=== PATIENT | female | born 1980 | race Caucasian/White ===

== ENCOUNTER 2022-09-26 19:45 | Emergency (ER) | payer OTHER ==
--- OUTSIDE RECORDS SUMMARY | 2022-09-26 19:48 | XMS REPORT | Continuity of Care Document ---
:1980 Author Organization [facility] t Address [address] [place] [address] [place] [id number] Care Team Providers Name Role Phone A_Byrd Attending Clinician Unavailable Yan_W Attending Clinician Unavailable A_Byrd Admitting Clinician Unavailable Yan_W Admitting Clinician Unavailable Payers Payer Name Policy Type Policy Number Effective Date Expiration Date [facility] [id number] 2021 [facility] 00:00:00 [facility] [place] [facility] - [id number] [facility] Problems Condition Condition Condition Status Onset Resolution Last Treating Co mments Source Name Details Category Date Date Treatment Clinician Date Atypical Atypical Problem Active 2020-07 [facility] chest pain Chest Pain 2-16 da 00:00: Medical 00 Group Lateral Lateral Problem Active 2020-07 [facility] epicondyli Epicondyli 1-30 da tis of tis of 00:00: Medical right Right 00 Group humerus Humerus Anxiety Anxiety Problem Active 2020-07 [facility] 0-20 da 00:00: Medical 00 Group Depressive Depressive Problem Active 2020-07 [facility] disorder Disorder 0-20 da 00:00: Medical 00 Group Allergies, Adverse Reactions, Alerts This patient has no known allergies or adverse reactions. Medications Ordered Filled Start Stop Current Ordering Indication Dosage Frequency Signature Comments Components Source Medication Medication Date Date Medication? Clinician (SIG) Name Name acetaminoph acetaminoph No acetaminop [facility] en 300 en 300 hen 300 da mg-codeine mg-codeine mg-codeine Medical 30 mg 30 mg 30 mg Group tablet tablet tablet clonazepam clonazepam No clonazepam [facility] 2 mg tablet 2 mg tablet 2 mg d a TAKE 1 TAKE 1 tablet Medical TABLET (2 TABLET (2 TAKE 1 Willi up MG) BY MG) BY TABLET (2 MOUTH 3 MOUTH 3 MG) BY TIMES PER TIMES PER MOUTH 3 DAY DAY TIMES PER DAY ketorolac ketorolac No ketorolac [facility] 10 mg 10 mg 10 mg da tablet TAKE tablet TAKE tablet Medical ONE (1) ONE (1) TAKE ONE Group TABLET(S) TABLET(S) (1) BY MOUTH BY MOUTH TABLET(S) FOUR TIMES FOUR TIMES BY MOUTH A DAY FOR 5 A DAY FOR 5 FOUR TIMES DAYS DAYS A DAY FOR NEEDED FOR NEEDED FOR 5 DAYS PAIN. PAIN. NEEDED FOR PAIN. metoclopram metoclopram No metoclopra [facility] adrianne 10 mg adrianne 10 mg mide 10 mg da tablet tablet tablet Medical Group venlafaxine venlafaxine No venlafaxin [facility] ER 75 mg ER 75 mg e ER 75 mg d a capsule,ext capsule,ext capsule,ex Medical ended ended tended Group release 24 release 24 release 24 hr TAKE 2 hr TAKE 2 hr TAKE 2 CAPSULES CAPSULES CAPSULES (150 MG) BY (150 MG) BY (150 MG) MOUTH DAILY MOUTH DAILY BY MOUTH WITH FOOD WITH FOOD DAILY WITH FOOD zolpidem 10 zolpidem 10 No zolpidem [facility] mg tablet mg tablet 10 mg da TAKE ONE TAKE ONE tablet Medic al (1) (1) TAKE ONE Group TABLET(S) TABLET(S) (1) BY MOUTH BY MOUTH TABLET(S) ONCE A DAY ONCE A DAY BY MOUTH AT BEDTIME. AT BEDTIME. ONCE A DAY AT BEDTIME. Vital Signs Vital Name Observation Time Observation Value Comments Source BP Diastolic 2021-07-04 00:00:00 67 [facility] Height 2021-07-04 00:00:00 60 [facility]in_i[facility] BMI (Body Mass 2021-07-04 00:00:00 27 kg/m2 [facility]) Group BP Systolic 2021-07-04 00:00:00 98 mm[Hg] [facility] Body Weight 2021-07-04 00:00:00 2208 [oz_av] [facility] BP Diastolic 2021-06-25 00:00:00 67 mm[Hg] [facility] Height 2021-06-25 00:00:00 60 [in_i] [facility] BMI (Body Mass 2021-06-25 00:00:00 27 kg/m2 [facility]) Group BP Systolic 2021-06-25 00:00:00 97 mm[Hg] [facility] Body Weight 2021-06-25 00:00:00 2208 [oz_av] [facility] Procedures Procedure Date / Time Performed Performing Clinician Sourgaudencio e XR, elbow 2021-07-04 00:00:00 [facility] Caesarean Section [facility] Cholecyst[facility] Encounters Start End Encounter Admission Attending Care Care Encounter Source Date/Time Date/Time Type Type Clinicians Facility Department ID 2021-07-04 2021-07-04 Camilo Aragon A_Byrd [facility] [place] - [id number] [facility] 00:00:00 00:00:00 MD Maik: [address] [place] [address] , Ph. 2021-07-02 2021-07-02 [facility] [id number] [facility] 04:54:00 04:54:00 1207 [facility] 2021-06-25 2021-06-25 Camilo [place]agon [place] - [id number] [facility] 00:00:00 00:00:00 MD Maik: [address] [place] [address] [place] [address] , Ph. 2021-06-24 2021-06-24 Outpatient A_Byrd [facility] [id number] [facility] 11:19:00 11:19:00 1129 [facility] 2021-05-15 2021-05-15 Outpatient A_Byrd [facility] [id number] [facility] 11:18:00 11:18:00 1020 [facility] 2021-05-14 2021-05-14 [place] [id number] [facility] 04:01:00 04:01:00 1019 [facility] Results This patient has no known results.
[2022-09-26 21:48] LABS: SARS-COV-2 RT PCR NEGATIVE (NEGATIVE)
--- NOTE | 2022-09-26 22:00 | ER ---
Nurse's Notes [facility] Name: Yue Guillaume Age: 41 yrs Sex: Female : 1980 Arrival Date: 09/26/2022 Time: 19:49 Bed 15 Private MD: Diagnosis: SARS-associated coronavirus as the cause of diseases classified elsewhere Presentation: 09/26 20:33 Chief complaint: Patient states: started feeling bad yesterday, took a home covid test lg3 and it was positive. face pressure, body aches, runny nose, cough, congestion. Coronavirus screen: At this time, unable to obtain information related to travel outside the [place] Client presents with at least one sign or symptom that may indicate coronavirus-19. Standard/surgical mask placed on the client. Ebola Screen: No symptoms or risks identified at this time. Initial Sepsis Screen: Does the patient meet any 2 criteria? No. Patient's initial sepsis screen is negative. Does the patient have a suspected source of infection? No. Patient's initial sepsis screen is negative. Risk Assessment: Do you want to hurt yourself or someone else? Patient reports no desire to harm self or others. Onset of symptoms was September 25, 2021. 20:33 Method Of Arrival: Ambulatory lg3 20:33 Acuity: CAMILA 4 lg3 Triage Assessment: 20:36 Headache History: Denies prior headaches. General: Appears in no apparent distress. lg3 uncomfortable, Behavior is calm, cooperative. Pain: Complains of pain in generalized body aches Pain currently is 2 out of 10 on a pain scale. Pain began 1 day ago. Also complains of decreased appetite, nausea. EENT: No deficits noted. No signs and/or symptoms were reported regarding the EENT system. Neuro: No deficits noted. [place] Agitation-Sedation Scale (RASS): 0 - Alert and Calm Level of Consciousness is awake, alert, obeys commands, Oriented to person, place, time, situation. Cardiovascular: No deficits noted. Denies chest pain, Capillary refill < 3 seconds Clubbing of nail beds is absent JVD is absent Patient's skin is warm and dry. Respiratory: Reports cough that is Airway is patent Trachea midline Respiratory effort is even, unlabored, Respiratory pattern is regular, symmetrical. GI: No deficits noted. Reports diarrhea, nausea. : No deficits noted. No signs and/or symptoms were reported regarding the genitourinary system. Derm: No deficits noted. No signs and/or symptoms reported regarding the dermatologic system. Skin is intact, is healthy with good turgor, Skin is dry, Skin is normal, Skin temperature is warm. Musculoskeletal: No deficits noted. Circulation, motion, and sensation intact. Range of motion: intact in all extremities. 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 Flu vaccine is not up to date. - Social history:: Smoking status: Patient denies any tobacco usage or history of. Patient uses alcohol, occasionally. Patient/guardian denies using street drugs. Screenin:00 [facility] ED Fall Risk Assessment (Adult) History of falling in the last 3 months, ha1 including since admission No falls in past 3 months (0 pts) Confusion or Disorientation No (0 pts) Intoxicated or Sedated No (0 pts) Impaired Gait No (0 pts) Mobility Assist Device Used No (0 pt) Altered Elimination No (0 pt) Score/Fall Risk Level 0 - 2 = Low Risk Oriented to surroundings, Maintained a safe environment, Educated pt \T\ family on fall prevention, incl call for assistance when getting out of bed. Abuse screen: Denies threats or abuse. Denies injuries from another. Nutritional screening: No deficits noted. Tuberculosis screening: No symptoms or risk factors identified. Assessment: 20:42 General: Appears comfortable, Behavior is calm, cooperative. Pain: Complains of pain in ha1 head Pain does not radiate. Pain currently is 8 out of 10 on a pain scale. Quality of pain is described as throbbing. Neuro: Level of Consciousness is awake, alert, obeys commands, Oriented to person, place, time, situation. Neuro: Reports headache. Cardiovascular: Capillary refill < 3 seconds Patient's skin is warm and dry. Respiratory: Airway is patent Respiratory effort is even, unlabored, Respiratory pattern is regular, symmetrical. Respiratory: Reports cough that is dry, Breath sounds are clear bilaterally. GI: No signs and/or symptoms were reported involving the gastrointestinal system. : No signs and/or symptoms were reported regarding the genitourinary system. EENT: No signs and/or symptoms were reported regarding the EENT system. Musculoskeletal: Circulation, motion, and sensation intact. Range of motion: intact in all extremities. 21:40 Reassessment: Patient and/or family updated on plan of care and expected duration. Pain ha1 level reassessed. Patient is alert, oriented x 3, equal unlabored respirations, skin warm/dry/pink. Vital Signs: 20:33 BP 110 / 78; Pulse 91; Resp 17; Temp 97.8(TE); Pulse Ox 100% on R/A; Weight 65.77 kg lg3 (R); Height 4 ft. 11 in. (149.86 cm) (R); Pain 1/10; 21:21 BP 104 / 71; Pulse 84; Resp 19; Temp 99.2; Pulse Ox 100% on R/A; ha1 21:40 BP 100 / 67; Pulse 80; Resp 16 S; Pulse Ox 99% on R/A; ha1 20:33 Body Mass Index 29.29 (65.77 kg, 149.86 cm) lg3 ED Course: 19:49 Patient arrived in ED. jj6 20:05 Robe Otero PA is PHCP. cp 20:05 Jonny Matson MD is Attending Physician. cp 20:36 Triage completed. lg3 20:36 Arm band placed on right wrist. lg3 21:00 Patient has correct armband on for positive identification. Bed in low position. Call ha1 light in reach. Side rails up X 1. 21:06 COVID-19/FLU A+B Sent. kr3 21:16 Georgina Fuller, RN is Primary Nurse. ha1 22:12 No provider procedures requiring assistance completed. Patient did not have IV access ha1 during this emergency room visit. Administered Medications: No medications were administered Medication: 22:13 VIS not applicable for this client. ha1 Outcome: 22:00 Discharge ordered by . aaron 22:12 Discharged to home ambulatory. ha1 22:12 Condition: stable 22:12 Discharge instructions given to patient, Instructed on discharge instructions, follow up and referral plans. medication usage, Demonstrated understanding of instructions, follow-up care, medications, Prescriptions given X 2. 22:15 Patient left the ED. ha1 Signatures: Robe Otero PA PA cp Gibson, Lacie, RN RN lg3 Ghazal [id number] Georgina Fuller RN RN ha1 Alyssa Burrell RN RN kr3
--- NOTE | 2022-09-26 22:01 | EDPHYS ---
Physician Documentation [facility] Name: Yue Guillaume Age: 41 yrs Sex: Female : 1980 Arrival Date: 09/26/2022 Time: 19:49 Bed 15 Private MD: ED Physician Jonny Matson HPI: 09/26 20:50 This 41 yrs old Female presents to ER via Ambulatory with complaints of COVID+ on home cp test, Headache, Runny Nose, Shortness Of Breath. 20:50 The patient or guardian reports cough, that is intermittent, shortness of breath. cp Onset: The symptoms/episode began/occurred yesterday. Associated signs and symptoms: Pertinent positives: sore throat, headache, body aches, rhinorrhea. 20:50 Patient reports taking home COVID-19 today test that returned positive. 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 Flu vaccine is not up to date. - Social history:: Smoking status: Patient denies any tobacco usage or history of. Patient uses alcohol, occasionally. Patient/guardian denies using street drugs. ROS: 20:55 Constitutional: Positive for body aches, Negative for fever, poor PO intake. cp 20:55 Eyes: Negative for injury, pain, redness, and discharge. cp 20:55 ENT: Positive for rhinorrhea, sore throat, Negative for drainage from ear(s), ear pain, difficulty swallowing, difficulty handling secretions. 20:55 Neck: Negative for pain with movement, pain at rest, stiffness. 20:55 Cardiovascular: Negative for chest pain, palpitations. 20:55 Respiratory: Positive for cough, shortness of breath. 20:55 Abdomen/GI: Negative for vomiting, diarrhea, constipation. 20:55 Neuro: Positive for headache, Negative for altered mental status, dizziness, weakness. 20:55 All other systems are negative. Exam: 21:00 Constitutional: The patient appears in no acute distress, alert, awake, cp non-diaphoretic, non-toxic, well developed, well nourished. 21:00 Head/Face: Normocephalic, atraumatic. cp 21:00 Eyes: Periorbital structures: appear normal, Conjunctiva: normal, no exudate, no injection, Sclera: no appreciated abnormality, Lids and lashes: appear normal, bilaterally. 21:00 ENT: External ear(s): are unremarkable, Nose: is normal, Mouth: Lips: moist, Oral mucosa: pink and intact, moist, Posterior pharynx: Airway: no evidence of obstruction, patent, Tonsils: no enlargement, no exudate, swelling, is not appreciated, erythema, that is mild, exudate, is not appreciated. 21:00 Neck: ROM/movement: is normal, is supple, without pain, no range of motions limitations, no meningismus, Lymph nodes: no appreciated lymphadenopathy. 21:00 Chest/axilla: Inspection: normal. 21:00 Cardiovascular: Rate: normal. 21:00 Respiratory: the patient does not display signs of respiratory distress, Respirations: normal, no use of accessory muscles, no retractions, labored breathing, is not present. 21:00 Abdomen/GI: Exam negative for discomfort, distension, guarding, Inspection: abdomen appears normal. 21:00 Skin: no rash present. 21:00 Neuro: Orientation: to person, place \T\ time. Mentation: is normal, Motor: moves all fours, strength is normal, Sensation: is normal, Gait: is steady. Vital Signs: 20:33 BP 110 / 78; Pulse 91; Resp 17; Temp 97.8(TE); Pulse Ox 100% on R/A; Weight 65.77 kg lg3 (R); Height 4 ft. 11 in. (149.86 cm) (R); Pain 1/10; 21:21 BP 104 / 71; Pulse 84; Resp 19; Temp 99.2; Pulse Ox 100% on R/A; ha1 21:40 BP 100 / 67; Pulse 80; Resp 16 S; Pulse Ox 99% on R/A; ha1 20:33 Body Mass Index 29.29 (65.77 kg, 149.86 cm) lg3 MDM: 20:43 Patient medically screened. cp 21:00 Differential diagnosis: bronchitis, flu, URI, pneumonia, UTI, sepsis, COVID-19. cp 22:00 Data reviewed: vital signs, nurses notes, lab test result(s). cp 22:00 Counseling: I had a detailed discussion with the patient and/or guardian regarding: the cp historical points, exam findings, and any diagnostic results supporting the discharge/admit diagnosis, lab results, to return to the emergency department if symptoms worsen or persist or if there are any questions or concerns that arise at home. 22:00 Care significantly affected by the following chronic conditions: congenital cardiac cp defects. 22:00 ED course: VSS. Discussed results of our testing that returned negative COVID-19, but cp with patient reporting positive home test, will treat with antivirals and discharge to home for continued monitoring. 09/26 20:39 Order name: COVID-19/FLU A+B cp 09/26 21:48 Order name: COVID-19/FLU A+B; Complete Time: 21:52 EDMS 09/26 21:53 Interpretation: Reviewed. cp Administered Medications: No medications were administered Disposition Summary: 09/26/22 22:00 Discharge Ordered Location: Home cp Problem: new cp Symptoms: are unchanged cp Condition: Stable cp Diagnosis - SARS-associated coronavirus as the cause of diseases classified elsewhere cp Followup: cp - With: Private Physician - When: 2 - 3 days - Reason: Worsening of condition Discharge Instructions: - Discharge Summary Sheet cp - Aspirin and Your Heart cp - Form - Excuse from Work, School, or Physical Activity cp - COVID-19 cp - Things to Know about the COVID-19 Pandemic - [facility] [place] 2[place] cp - 10 Things You Can Do to Manage Your COVID-19 Symptoms at Home - [facility] [place] 2] cp - COVID-19: Quarantine vs. Isolation - [facility] [place] 2] cp - Prevent the Spread of COVID-19 if You Are Sick - [facility] [place] 2] cp Forms: - Medication Reconciliation Form cp - Thank You Letter cp - Antibiotic Education cp - Prescription Opioid Use cp - Work release form ha1 Prescriptions: - Paxlovid (EUA) 150 mg x 2- 100 mg Oral tablet - take 3 tablet by ORAL route 2 times per day for 5 days per package directions; cp 30 tablet; Refills: 0, Product Selection Permitted - Ibuprofen 800 mg Oral Tablet - take 1 tablet by ORAL route every 8 hours As needed take with food; 30 tablet; cp Refills: 0, Product Selection Permitted Addendum: 09/29/2022 02:27 Co-signature as Attending Physician, Jonny Matson MD I agree with the assessment s p4 and plan of care. I reviewed the patient's care provided by the Advanced Practice Provider and agree with the diagnosis and treatment plan. Signatures: Dispatcher [employer] EDMS Robe Otero PA PA cp Ashley Hernández, CECILIA RN lg3 Jonny Matson MD MD sp4 Corrections: (The following items were deleted from the chart) 09/27 21:21 09/26 20:50 The patient or guardian reports shortness of breath, cp cp
[2022-09-26 23:20] VITALS: TEMP 99.2
[2022-09-26 23:21] VITALS: BP 100/67; O2SAT 99
== END 2022-09-26 22:15 | disposition home or self-care (01) ==
LOC: ER 19:45
DX: U07.1 COVID-19 (principal); F32.A Depression, unspecified; F41.9 Anxiety disorder, unspecified
CPT/HCPCS: 0240U; 99283